=== PATIENT | female | born 1975 | race African-American/Black ===

== ENCOUNTER 2022-08-27 12:39 | Emergency (ER) | payer SELFPAY ==
--- NOTE | 2022-08-27 14:04 | RAD REPORT ---
EXAM DESCRIPTION: CT - Head Brain Wo Cont - 08/27/2022 1:51 pm CLINICAL HISTORY: Near syncope Headache, drowsiness, syncope COMPARISON: No comparisons TECHNIQUE: All CT scans are performed using dose optimization technique as appropriate and may inclu de automated exposure control or mA/KV adjustment according to patient size. FINDINGS: No intracranial hemorrhage, hydrocephalus or extra-axial fluid collection.No areas of brai n edema or evidence of midline shift. The paranasal sinuses and mastoids are clear. The calvarium is intact. IMPRESSION: No acute intracranial abnormality.
--- NOTE | 2022-08-27 14:09 | RAD REPORT ---
EXAM DESCRIPTION: RAD - Chest Single View - 08/27/2022 2:02 pm CLINICAL HISTORY: near syncope Chest pain. COMPARISON: No comparisons FINDINGS: Portable technique limits examination quality. The lungs are grossly clear. The heart is normal in size. No displaced fractures. IMPRESSION: No acute intrathoracic process suspected.
[2022-08-27 15:09] LABS: Absolute Lymphocytes (CBC) 1.9 K/uL (0.7-4.9); Hematocrit 35.9 % (36.0-45.0); Lymphocytes % 21.7 % (15.3-44.8); MCV 77.2 fL (80-100); MPV 7.4 fL (7.6-11.3); RBC Red Blood Cell Count 4.66 M/uL (3.86-4.86)
[2022-08-27 15:23] LABS: Protime INR 1.26
[2022-08-27 15:34] LABS: Albumin 3.5 g/dL (3.4-5.0); Bilirubin Direct 0.2 mg/dL (0-0.2); Bilirubin Total 0.5 mg/dL (0.2-1.0); Magnesium 2.1 mg/dL (1.8-2.4); Potassium 3.6 mmol/L (3.5-5.1); Protein, Total 8.6 g/dL (6.4-8.2); Troponin High Sensitivity 3.5 pg/mL (<58.9)
--- NOTE | 2022-08-27 16:55 | ER ---
Nurse's Notes [facility] Name: Twila Finch Age: 46 yrs Sex: Female : 1975 Arrival Date: 08/27/2022 Time: 12:42 Bed 5 Private MD: Diagnosis: Headache;Dizziness and giddiness Presentation: 08/27 13:02 Chief complaint: Patient states: I was at work this morning - turned around and felt ld1 the left side of my head go numb. Blacked out for a second and felt dizzy. Coronavirus screen: At this time, the client does not indicate any symptoms associated with coronavirus-19. Ebola Screen: No symptoms or risks identified at this time. Initial Sepsis Screen: Does the patient meet any 2 criteria? No. Patient's initial sepsis screen is negative. Does the patient have a suspected source of infection? No. Patient's initial sepsis screen is negative. Risk Assessment: Do you want to hurt yourself or someone else? Patient reports no desire to harm self or others. Onset of symptoms was August 27, 2022. 13:02 Method Of Arrival: Ambulatory ld1 13:02 Acuity: FRANDY 3 ld1 Triage Assessment: 13:03 General: Appears in no apparent distress. comfortable, Behavior is calm, cooperative, ld1 appropriate for age. Pain: Denies pain. EENT: No signs and/or symptoms were reported regarding the EENT system. Neuro: Level of Consciousness is awake, alert, obeys commands, Oriented to person, place, time, situation, Reports dizziness. Neuro: Reports headache in left. Cardiovascular: Capillary refill < 3 seconds Patient's skin is warm and dry. Respiratory: Airway is patent Respiratory effort is even, unlabored. GI: Abdomen is round non-distended, Reports nausea. : No signs and/or symptoms were reported regarding the genitourinary system. Derm: No signs and/or symptoms reported regarding the dermatologic system. Musculoskeletal: No signs and/or symptoms reported regarding the musculoskeletal system. 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 - Social history:: Smoking status: Patient denies any tobacco usage or history of. Patient/guardian denies using alcohol. Screenin:30 Abuse screen: Denies threats or abuse. Nutritional screening: No deficits noted. mb9 Tuberculosis screening: No symptoms or risk factors identified. Fall Risk None identified. Assessment: 13:30 General: Appears in no apparent distress. comfortable, Behavior is calm, cooperative, mb9 appropriate for age. Pain: Denies pain. Neuro: Level of Consciousness is awake, alert, obeys commands, Oriented to person, place, time, situation, Appropriate for age Speech is normal, Pupils are PERRLA, Reports she had a headache before she came in but has no pain right now. Cardiovascular: Heart tones S1 S2 present. Respiratory: Airway is patent Respiratory effort is even, unlabored, Respiratory pattern is regular, symmetrical, Breath sounds are clear bilaterally. GI: Abdomen is round Bowel sounds present X 4 quads. Reports had nausea earlier but denies any right now Patient currently denies nausea, pain. 13:30 : No signs and/or symptoms were reported regarding the genitourinary system. Derm: mb9 Skin is intact, Skin is dry, Skin is normal, Skin temperature is warm. Musculoskeletal: Range of motion: intact in all extremities. 16:01 Pain: Denies pain. Neuro: Level of Consciousness is awake, alert, obeys commands, mb9 Oriented to person, place, time, situation, Appropriate for age. Cardiovascular: Heart tones S1 S2 present. Respiratory: Airway is patent Respiratory effort is even, unlabored, Respiratory pattern is regular, symmetrical. GI: Patient currently denies nausea. Derm: Skin is intact, Skin is dry, Skin is normal, Skin temperature is warm. Musculoskeletal:. 17:00 Reassessment: pt sitting in bed. Pt states she feels better and is ready to go home. mb9 Vital Signs: 13:02 BP 157 / 98; Pulse 99; Resp 18; Temp 97.8(O); Pulse Ox 100% on R/A; Weight 99.79 kg; ld1 Height 5 ft. 6 in. (167.64 cm); Pain 0/10; 13:30 BP 124 / 93; Pulse 84; Resp 16; Pulse Ox 100% ; Pain 0/10; mb9 16:03 BP 144 / 91; Pulse 91; Resp 16; Pulse Ox 100% on R/A; Pain 0/10; mb9 17:19 BP 146 / 92; Pulse 86; Resp 16; Pulse Ox 100% on R/A; Pain 0/10; mb9 13:02 Body Mass Index 35.51 (99.79 kg, 167.64 cm) ld1 ED Course: 12:42 Patient arrived in ED. am2 13:02 Triage completed. ld1 13:03 Arm band placed on right wrist. ld1 13:15 Inserted saline lock: 22 gauge in right antecubital area, using aseptic technique. mb9 Blood collected. 13:30 Khang Vazquez NP is PHCP. pm1 13:30 Reginaldo Casas MD is Attending Physician. pm1 13:30 Placed in gown. Bed in low position. Call light in reach. Side rails up X 1. mb9 13:46 Edita Jones, RN is Primary Nurse. mb9 13:53 CT Head Brain wo Cont In Process Unspecified. EDMS 14:04 XRAY Chest (1 view) In Process Unspecified. EDMS 16:04 No provider procedures requiring assistance completed. mb9 17:27 IV discontinued, intact, bleeding controlled, No redness/swelling at site. Pressure mb9 dressing applied. Administered Medications: No medications were administered Medication: 13:30 VIS not applicable for this client. mb9 Outcome: 16:55 Discharge ordered by . pm1 17:27 Discharged to home ambulatory. mb9 17:27 Condition: stable 17:27 Discharge instructions given to patient, Instructed on discharge instructions, follow up and referral plans. 17:28 Patient left the ED. mb9 Signatures: Dispatcher [employer] EDMS Khang Vazquez, JULIO INSTITUTIONAL AIDE pm1 Lacey Easley am2 Jackeline Hopson RN RN ld1 Edita Jones, RN RN mb9 Corrections: (The following items were deleted from the chart) 13:03 13:03 PMHx: Unable to Obtain; ld1 ld1
--- NOTE | 2022-08-27 16:55 | EDPHYS ---
Physician Documentation [facility] Name: Twila Finch Age: 46 yrs Sex: Female : 1975 Arrival Date: 08/27/2022 Time: 12:42 Bed 5 Private MD: ED Physician Reginaldo Casas HPI: 08/27 14:07 This 46 yrs old Black Female presents to ER via Ambulatory with complaints of Nausea, pm1 Headache, Doesn't Feel Right. 14:07 The patient presents to the emergency department with nausea. Onset: The pm1 symptoms/episode began/occurred just prior to arrival. Possible causes: Not eating any food today prior to presentation of dizziness, nausea, and headache. The symptoms are alleviated by eating food and drinking fluids prior to arrival. Associated signs and symptoms: Pertinent negatives: abdominal pain, fever, Chest pain, shortness of breath. Severity of symptoms: in the emergency department the symptoms have resolved Pain is currently a 0 / 10. The patient has experienced similar episodes in the past, a few times, with the last episode occurring 6 month(s) ago. The patient has not recently seen a physician. 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 Patient shook her head to resolve the dizziness but believes that the symptoms are related to not eating any food until presentation of symptoms. Patient asked her boss if she could sit down eat a meal and drink fluids and said her symptoms resolved. Patient without any symptoms now. Patient reports similar episode 6 months ago with resolution of symptoms by shaking her head side to side as she did today. 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 - Social history:: Smoking status: Patient denies any tobacco usage or history of. Patient/guardian denies using alcohol. ROS: 14:07 Constitutional: Negative for fever, chills, and weight loss, Cardiovascular: Negative pm1 for chest pain, palpitations, and edema, Respiratory: Negative for shortness of breath, cough, wheezing, and pleuritic chest pain, Back: Negative for injury and pain. 14:07 MS/Extremity: Negative for injury and deformity, Skin: Negative for injury, rash, and discoloration. 14:07 Abdomen/GI: Positive for nausea, Negative for abdominal pain, vomiting, diarrhea. 14:07 Neuro: Positive for dizziness, headache. 14:07 All other systems are negative. Exam: 14:07 Constitutional: This is a well developed, well nourished patient who is awake, alert, pm1 and in no acute distress. Head/Face: Normocephalic, atraumatic. 14:07 Back: No spinal tenderness. No costovertebral tenderness. Full range of motion. Skin: Warm, dry with normal turgor. Normal color with no rashes, no lesions, and no evidence of cellulitis. MS/ Extremity: Pulses equal, no cyanosis. Neurovascular intact. Full, normal range of motion. 14:07 Eyes: Exam is negative for acute changes, Periorbital structures: no acute changes, Extraocular movements: no acute changes, Conjunctiva: no acute changes, no injection. 14:07 ENT: Exam is negative for acute changes, Mouth: no acute changes, Lips: normal, moist, Oral mucosa: normal, pink and intact, moist. 14:07 Cardiovascular: Exam negative for acute changes, Rate: normal, Rhythm: regular, Pulses: no pulse deficits are appreciated, Heart sounds: normal, normal S1and S2. 14:07 Respiratory: Exam negative for acute changes, respiratory distress, shortness of breath, Breath sounds: are clear throughout. 14:07 Abdomen/GI: Inspection: abdomen appears normal, Palpation: abdomen is soft and non-tender, in all quadrants. 14:07 Neuro: Exam negative for acute changes, Orientation: is normal, Mentation: is normal, Motor: is normal, moves all fours. Vital Signs: 13:02 BP 157 / 98; Pulse 99; Resp 18; Temp 97.8(O); Pulse Ox 100% on R/A; Weight 99.79 kg; ld1 Height 5 ft. 6 in. (167.64 cm); Pain 0/10; 13:30 BP 124 / 93; Pulse 84; Resp 16; Pulse Ox 100% ; Pain 0/10; mb9 16:03 BP 144 / 91; Pulse 91; Resp 16; Pulse Ox 100% on R/A; Pain 0/10; mb9 17:19 BP 146 / 92; Pulse 86; Resp 16; Pulse Ox 100% on R/A; Pain 0/10; mb9 13:02 Body Mass Index 35.51 (99.79 kg, 167.64 cm) ld1 MDM: 13:39 Patient medically screened. pm1 16:54 Data reviewed: vital signs. Data interpreted: Pulse oximetry: on room air is 100 %. pm1 Interpretation: normal. Counseling: I had a detailed discussion with the patient and/or guardian regarding: the historical points, exam findings, and any diagnostic results supporting the discharge/admit diagnosis, lab results, radiology results, the need for outpatient follow up, to return to the emergency department if symptoms worsen or persist or if there are any questions or concerns that arise at home. 08/27 13:40 Order name: Basic Metabolic Panel; Complete Time: 16:04 pm1 08/27 13:40 Order name: CBC with Diff; Complete Time: 15:18 pm1 08/27 13:40 Order name: LFT's; Complete Time: 16:04 pm1 08/27 13:40 Order name: Magnesium; Complete Time: 16:04 pm1 08/27 13:40 Order name: NT PRO-BNP; Complete Time: 16:04 pm1 08/27 13:40 Order name: PT-INR; Complete Time: 15:26 pm1 08/27 13:40 Order name: Troponin HS; Complete Time: 16:04 pm1 08/27 13:40 Order name: XRAY Chest (1 view); Complete Time: 14:11 pm1 08/27 13:40 Order name: EKG; Complete Time: 13:41 pm1 08/27 13:40 Order name: Cardiac monitoring; Complete Time: 16:04 pm1 08/27 13:40 Order name: EKG - Nurse/Tech; Complete Time: 16:04 pm1 08/27 13:40 Order name: IV Saline Lock; Complete Time: 16:04 pm1 08/27 13:40 Order name: Labs collected and sent; Complete Time: 16:04 pm1 08/27 13:40 Order name: CT Head Brain wo Cont; Complete Time: 14:07 pm1 08/27 13:40 Order name: O2 Per Protocol; Complete Time: 13:47 pm1 10/19 13:40 Order name: O2 Sat Monitoring; Complete Time: 13:47 pm1 EC:56 Rate is 89 beats/min. Rhythm is regular, Normal Sinus Rhythm with No ectopy. QRS [place] pm1 is Normal. [place] interval is normal. QRS interval is normal. QT interval is normal. No Q waves. T waves are Normal. No ST changes noted. Clinical impression: Normal sinus rhythm, cannot rule out anterior infarct, age indeterminate, abnormal EKG. Administered Medications: No medications were administered Disposition Summary: 08/27/22 16:55 Discharge Ordered Location: Home pm1 Problem: new pm1 Symptoms: have improved pm1 Condition: Stable pm1 Diagnosis - Headache pm1 - Dizziness and giddiness pm1 Followup: pm1 - With: Emergency Department - When: As needed - Reason: Worsening of condition Followup: pm1 - With: Private Physician - When: 2 - 3 days - Reason: Recheck today's complaints, Continuance of care, Re-evaluation by your physician Discharge Instructions: - Discharge Summary Sheet pm1 - Dizziness pm1 - General Headache Without Cause pm1 Forms: - Medication Reconciliation Form pm1 - Thank You Letter pm1 - Antibiotic Education pm1 - Prescription Opioid Use pm1 Signatures: Dispatcher [employer] EDMS Khang Vazquez, JULIO RETAIL WIRELESS SALES CONSULTANT pm1 Jackeline Hopson, AOLK RN ld1 Corrections: (The following items were deleted from the chart) 13:03 13:03 PMHx: Unable to Obtain; ld1 ld1
[2022-08-27 17:51] VITALS: TEMP 97.8; O2SAT 100
[2022-08-27 17:55] VITALS: BP 146/92
--- NOTE | 2022-08-28 16:16 | EKG ---
Test Date: 2022-08-27 Test Time: 15:57:07 Manager Pest: TOBI MEASUREMENT RESULTS: Intervals: Rate: 89 OH: 136 QRSD: 90 QT: 366 QTc: 445 [place]: P: 65 OH: 136 QRS: 23 T: 49 INTERPRETIVE STATEMENTS: Normal sinus rhythm Cannot rule out Anterior infarct, age undetermined Abnormal ECG No previous ECG available for comparison Electronically Signed On 08-28-22 16:14:27 CDT by Wojciech Fisher
== END 2022-08-27 17:28 | disposition home or self-care (01) ==
LOC: ER 12:39
DX: R51.9 Headache, unspecified (principal); R42 Dizziness and giddiness
CPT/HCPCS: 36415; 70450; 71045; 80048; 80076; 83735; 83880; 84484; 85025; 85610; 93005; 99284